=== PATIENT | female | born 1960 | race Two or more races ===

== ENCOUNTER 2023-12-20 13:12 | Outpatient (AMB) | payer MEDICAID, SELFPAY ==
[2023-12-20 13:13] VITALS: BP 119/73; PULSE 77; RESP 18; TEMP 36.9; O2SAT 96; BMI 11.7
--- NOTE | 2023-12-20 13:13 | ORTHONT_ITS ---
Vital signs 12/20/23 13:13 Height 1.55 m Height Method Stated Weight 28.123 kg Weight Measurement Method Standing Scale BMI 11.7 BP 119/73 Blood Pressure Source Automatic Cuff Blood Pressure Location Right Upper Arm Position Sitting Respiration 18 Pulse 77 Pulse Source Monitor Temp 98.5 F Temp Source Temporal Artery Scan Pulse Oximetry (%) 96 Oxygen Delivery Method Room Air Med/Allergies Allergies & Medications Allergies NKA* Allergy (Uncoded 12/20/23 13:18) Medication Reconciliation ibuprofen 600 mg tablet 600 mg PO Q6HR PRN PAIN #28 tabs 12/30/15 [Rx Confirmed 12/20/23] Subjective Visit Visit for: follow up visit Immunization / Flu Flu Vaccine in the Last 12 Months: No Flu Vaccine Exclusion Criteria: No Exclusion Criteria History of Present Illness Chief complaint: PRE OP Patient is a 63-year-old female who is seen 2 prior orthopedic surgeons previously with significant left knee pain. She was told she needed knee replacement. Both surgeons have left before. She has tried injections x 2 as well as anti-inflammatories. She also has tried ibuprofen. She reports the pain is affecting her quality of life and happiness. Personal History Red flag PMH: none Pain Pain level (0-10): 9 Pain duration: CONSTANT Pain location: inside (medial), outside (lateral), anterior and posterior Pain quality: sharp and aching Pain timing: night, increases with activity and stairs Associated signs & symptoms: none Ambulatory data Ambulatory device: none Treatments Improvement with previous injections: No Improvement with PT: No Improvement with NSAIDS: no Review of Systems Review of Systems: All systems negative unless otherwise noted in HPI. Exam Exam Patient is in no acute distress and is cooperative with the examination today. Breathing is nonlabored. Patient has a normal mood and affect. Bilateral e xtremities were evaluated and demonstrates sensation intact to light touch. Palpable pedal pulses are present. No significant edema is present. Bilateral hips were examined. The patient has no pain with log roll of the hips. Internal rotation to 30 degrees and external rotation to 30 degrees is painless. Negative FADIR. Right knee was examined today. The right knee is in reasonable alignment. Range of motion from 0-120 degrees. Knee is stable to varus and valgus as well as AP translation with <5mm. Patient has a negative McMurrays. There is no pain with patellofemoral compression and no crepitus noted. The knee is nontender to palpation. Left knee was examined today. The left knee is in varus alignment. Range of motion from 0-115 degrees. Knee is stable to varus and valgus as well as AP translation with <5mm. Patient has a negative McMurrays. There is no pain with patellofemoral compression and no crepitus noted. The knee is tender to palpation medially. Left knee demonstrates Complete joint space obliteration medially. Osteophytes are present. There is varus deformity Assessment and Plan Problem List (1) Arthritis of left knee: Status: Acute Plan: Patient is 63-year-old female severe left knee arthritis. She has failed conservative treatment with anti-inflammatories and injections and has end-stage arthritis. The pain is affecting her quality of life and happiness. She has a family history of arthritis with her sister previously had a hip PJI in her knee after a knee replacement. We discussed that infection can happen her risk is approximately 1% as she is relatively healthy Given her failure conservative management, we discussed total knee replacement is a reasonable option The nature and purpose of the total knee replacement, alternative method(s) of treatment, the material risks involved, and the possibility of complications were fully explained to the patient. The patient does NOT have any of the following contraindications to TKA: - Active infection of the knee joint, OR - Active systemic bacteremia, OR - Active skin infection or open wound at surgical site, OR - Neuropathic arthritis, OR - Severe, rapidly progressive neurological disease, OR - Severe medical condition that makes risks of surgery outweigh the potential benefit The patient was told the most common risks and complications associated with a total knee replacement include, but are not limited to: blood clots in the leg, fatal pulmonary embolism, dislocation of the prosthesis, intraoperative and postoperative fractures of the femur or tibia, infection, failure of the prosthesis or grafting materials, complications from anesthesia, reactions to blood transfusions, postoperative leg length inequality, instability of the knee replacement, nerve damage or injury, vascular injury, delayed wound healing, infection, other injury or even . In addition, there are risks associated with anesthesia given during this operation. Also, the patient was told that after undergoing a total knee replacement there may still be persistent pain or disability. The patient was informed that the success of this operation in part depends upon the mechanical devices which are going to be implanted and that these devices can fail or malfunction, and may need to be repaired or replaced and there are no guarantees as to the longevity of this device or its parts and that it or its parts could fail prematurely. The patient was also notified that during the course of surgery, there may be a need to use bone graft from donors, and that any bone graft used will be carefully screened for communicable diseases, including AIDS, hepatitis, You-Creutzfeldt, or other diseases, but despite the screening procedures, there is a small chance that they could contract one of these diseases. Finally, the patient was asked to follow completely and fully with all advice and recommended treatments, and that recovery and ultimate outcome are affected by their compliance with recommended treatment. We discussed the risks, benefits and treatment alternatives, and the patient is interested in proceeding with surgery. We will try to set this up as expeditiously as possible. (2) Pain in left knee: Status: Acute Office Procedures GNS Level of Care Nursing/Assessment Patient Status: Established Patient Nursing Assessment/Reassesment: Medication Reconciliation, Update PMH in EMR and Vital Signs Coordination of Care: Complex Care and Chronic Disease 1-5, Education Complex Pt/Fam, Consent,records obtained, informed consent and Staff clarify orders Established Patient Charge Established Patient Point Assignment: 90 Established Patient Point Charge: EP Level 3 (80-115) Past Medical History Past Medical History Have you ever been diagnosed with any of the following: Respiratory Problems Smoking: No Smoking Exposure: No
== END 2023-12-20 13:39 | disposition home or self-care (01) ==
LOC: HODSRG 13:12
PROVIDERS: PCP Family Medicine; Referring Provider Family Medicine; Supervising Provider Orthopaedic Surgery Adult Reconstructive Orthopaedic Surgery; Visit Provider Orthopaedic Surgery Adult Reconstructive Orthopaedic Surgery
DX: M17.12 Unilateral primary osteoarthritis, left knee (principal); M25.562 Pain in left knee
CPT/HCPCS: 99213; G0463

== ENCOUNTER 2024-01-10 13:51 | Outpatient (AMB) | payer MEDICAID, SELFPAY ==
--- NOTE | 2024-01-10 14:38 | PD.ORTHCLVIS ---
Vital signs 01/10/24 14:41 Height 1.63 m Height Method Stated Weight 71.838 kg Weight Measurement Method Standing Scale BMI 27.0 BP 102/66 Blood Pressure Source Automatic Cuff Blood Pressure Location Left Upper Arm Position Sitting Respiration 18 Pulse 80 Pulse Source Monitor Temp 97.7 F Temp Source Temporal Artery Scan Pulse Oximetry (%) 95 Oxygen Delivery Method Room Air Med/Allergies Allergies & Medications Allergies No Known Allergies Allergy (Verified 01/10/24 14:42) Medication Reconciliation acetaminophen 500 mg tablet (Acetaminophen Extra Strength) 1,000 mg (2 x 500 mg) PO Q6H PRN pain #90 tabs 12/25/23 [Rx Confirmed 01/10/24] aspirin 81 mg tablet,delayed release 81 mg PO BID #60 tabs 12/25/23 [Rx Confirmed 01/10/24] doxycycline hyclate 100 mg tablet 100 mg PO BID #14 tabs 12/25/23 [Rx Confirmed 01/10/24] gabapentin 300 mg capsule 300 mg PO .qhs #30 caps 12/25/23 [Rx Confirmed 01/10/24] oxycodone 5 mg tablet 5 mg PO Q6H PRN pain #28 tabs 12/25/23 [Rx Confirmed 01/10/24] sennosides 8.6 mg-docusate sodium 50 mg tablet (Senna-S) 1 tab-cap PO QDAY #30 tabs 12/25/23 [Rx Confirmed 01/10/24] Subjective Visit Visit for: follow up visit and knee Immunization / Flu Flu Vaccine in the Last 12 Months: Yes Flu Vaccine Exclusion Criteria: Already Received History of Present Illness Chief complaint: 2WK POST OP TKA Patient is doing well status post left total knee replacement. She is doing well with outpatient physical therapy Personal History Occupation: DISABLED Pain Pain level (0-10): 0 Pain duration: NONE Associated signs & symptoms: none Ambulatory data Ambulatory device: none Treatments Improvement with previous injections: No Improvement with PT: No Improvement with NSAIDS: n/a Review of Systems Review of Systems: All systems negative unless otherwise noted in HPI. Exam Exam Patient is in no acute distress and is cooperative with the examination today. Patient has a normal mood and affect. Breathing is nonlabored. In no respiratory distress. Bilateral extremities were evaluated and demonstrates sensation intact to light touch. Palpable pedal pulses are present. No significant edema is present. Left knee incision is clean dry and intact Left knee x-rays demonstrate a total knee replacement in good alignment position Assessment and Plan Problem List (1) History of total left knee replacement: Status: Acute Plan: Patient is doing well status post left total knee replacement. She should continue with therapy. Will see her in approximately 4 weeks. Office Procedures GNS Level of Care Nursing/Assessment Patient Status: Established Patient Nursing Assessment/Reassesment: Medication Reconciliation, Update PMH in EMR and Vital Signs Coordination of Care: Complex Care and Chronic Disease 1-5, Education Complex Pt/Fam, Consent,records obtained, informed consent, Results/Orders obtained and Staff clarify orders Special Needs: Language special needs Established Patient Charge Established Patient Point Assignment: 95 Established Patient Point Charge: EP Level 3 (80-115) Past Medical History Past Medical History Have you ever been diagnosed with any of the following: Neurological Problems Seizures: No Migraine: Yes Cardiology Problems Congestive Heart Failure: No Respiratory Problems Chronic Obstructive Pulmonary Disease (COPD): No Smoking: No Smoking Exposure: No Stomache/Intestinal Problems Hepatitis: No Genital/Urinary Problems Renal Disease: No Reproductive Problems Previous Pregnancies: Yes Musculoskeletal Problems Arthritis: Yes Endocrine Problems Diabetes Mellitus Type 1: No Diabetes Mellitus Type 2: No Other Problems Hospitalization: No Shingles: No Blood Transfusions: No Blood Transfusion Reaction: No Anesthesia Reactions: No Chicken Pox: Yes Measles: Yes Cancer: No
[2024-01-10 14:41] VITALS: BP 102/66; PULSE 80; RESP 18; TEMP 36.5; O2SAT 95; BMI 27.0
== END 2024-01-10 14:49 | disposition home or self-care (01) ==
LOC: HODSRG 13:51
PROVIDERS: PCP Family Medicine; Referring Provider Family Medicine; Supervising Provider Orthopaedic Surgery Adult Reconstructive Orthopaedic Surgery; Visit Provider Orthopaedic Surgery Adult Reconstructive Orthopaedic Surgery
DX: Z96.652 Presence of left artificial knee joint (principal)
CPT/HCPCS: 99213; G0463

== ENCOUNTER 2024-01-16 13:30 | Outpatient (RCR) | payer MEDICAID, SELFPAY ==
--- NOTE | 2024-01-09 13:39 | PTNOTE_ITS ---
PT OP Initial Eval Patient Information Outpatient Physical Therapy Treatment Date: 01/09/24 Visit Reasons: Post Op left knee surgery Medical Diagnosis: M17.12 M25.562 Treatment Dx #1: L knee pain Treatment Dx #2: Dec L knee ROM Start of Care: 01/09/24 Date of Onset: 12/25/23 Smoking Status Smoking Status: Never smoker Initial Assessment Subjective: Pt is 63 yr old german speaking female s/p L TKA presents ambulating with FWW and step to gait pattern. Pt reports pain with bending the knee and walking. She was ambulating without the FWW prior to sx. PMH: none reported Pt goal: to ambulate without the walker and without pain Objective: L knee AROM: ? Flexion: 43 deg ? Extension: -13 deg ? SLR: ? unable ? Strength: ? Quads and hamstrings 3-/5 ? Antalgic gait pattern with decreased WB tolerance on R LE Assessment: Pt presentation consistent with post op L TKA with decreased ROM, strength ? and WB tolerance. Pt lacks knee extension and flexion ROM is very limited by ? myofascial limitations and pain.? Pt requires skilled therapy to improve ROM ? and strength and has good rehab potential.? Eval followed by HEP with printout. Short Term and Prison Goals 1. Independent with HEP ? 2. Improved knee extension to full and flexion ROM to 115 deg ? 3. Improved quad and hamstring strength to 4+/5 ? 4. Improved ambulatory tolerance to community distances with symmetrical ? gait pattern without walker if safe Treatment Plan 1. Manual therapy ? 2. Therex ? 3. Modalities as indicated, moist heat, ice, TENS Frequency and Duration: 2x a week for 18 visits Certification Dates: 01/09/24 to 04/08/24 Procedure Charges OP PT Eval Mod Complex 30 minutes: Yes
--- NOTE | 2024-01-13 14:17 | PT.ODAYNRPT ---
PT Outpatient Daily Note OP Daily Note Outpatient Physical Therapy Treatment Date: 01/13/24 Visit Reasons: Post Op left knee surgery Subjective: Doing HEP with pain in L knee Objective: See f/S for therex MHP x7' with LLPS Assessment: Good improvement with knee PROM into extension after LLPS to about -3 deg Plan: Improve L knee ROM Length of Time (minutes) of Treatment: 30 Minutes Procedure Charges Therapeutic Exercise 30 minutes: Yes
--- NOTE | 2024-01-16 14:37 | PT.ODAYNRPT ---
PT Outpatient Daily Note OP Daily Note Outpatient Physical Therapy Treatment Date: 01/16/24 Visit Reasons: Post Op left knee surgery Subjective: Pt reports L knee is stiff and pain is worst at night. Objective: Please see flow sheet for ther ex list. Assessment: Pt guarded during PROM resulting in poor ROM. Plan: Continue with POC. Length of Time (minutes) of Treatment: 30 Minutes Procedure Charges Therapeutic Exercise 30 minutes: Yes
== END 2024-01-25 23:59 | disposition home or self-care (01) ==
LOC: CPTX 13:30
PROVIDERS: PCP Orthopaedic Surgery Adult Reconstructive Orthopaedic Surgery; Referring Provider Orthopaedic Surgery Adult Reconstructive Orthopaedic Surgery; Visit Provider Orthopaedic Surgery Adult Reconstructive Orthopaedic Surgery
DX: M25.562 Pain in left knee (principal); Z96.652 Presence of left artificial knee joint; M17.12 Unilateral primary osteoarthritis, left knee
CPT/HCPCS: 97110; 97162

== ENCOUNTER 2024-02-07 10:15 | Outpatient (AMB) | payer MEDICAID, SELFPAY ==
--- NOTE | 2024-02-07 10:46 | ORTHONT_ITS ---
Vital signs 02/07/24 10:52 Height 1.63 m Height Method Stated Weight 71.242 kg Weight Measurement Method Standing Scale BMI 26.8 BP 113/74 Blood Pressure Source Automatic Cuff Blood Pressure Location Right Upper Arm Position Sitting Respiration 18 Pulse 91 Pulse Source Monitor Temp 97.8 F Temp Source Temporal Artery Scan Pulse Oximetry (%) 97 Oxygen Delivery Method Room Air Med/Allergies Allergies & Medications Allergies No Known Allergies Allergy (Verified 02/07/24 10:53) Medication Reconciliation acetaminophen 500 mg tablet (Acetaminophen Extra Strength) 1,000 mg (2 x 500 mg) PO Q6H PRN pain #90 tabs 12/25/23 [Rx Confirmed 02/07/24] aspirin 81 mg tablet,delayed release 81 mg PO BID #60 tabs 12/25/23 [Rx Confirmed 02/07/24] doxycycline hyclate 100 mg tablet 100 mg PO BID #14 tabs 12/25/23 [Rx Confirmed 02/07/24] gabapentin 300 mg capsule 300 mg PO .qhs #30 caps 12/25/23 [Rx Confirmed 02/07/24] oxycodone 5 mg tablet 5 mg PO Q6H PRN pain #28 tabs 12/25/23 [Rx Confirmed 01/25 05/18] sennosides 8.6 mg-docusate sodium 50 mg tablet (Senna-S) 1 tab-cap PO QDAY #30 tabs 12/25/23 [Rx Confirmed 02/07/24] cyclobenzaprine 5 mg tablet 5 mg PO QHS PRN muscle spasm #30 tabs 02/07/24 [Rx] Subjective Visit Visit for: post op #2 and knee Immunization / Flu Flu Vaccine in the Last 12 Months: Yes Flu Vaccine Exclusion Criteria: Already Received History of Present Illness Chief complaint: 6 WEEK POST OP Patient is doing well status post left total knee replacement. She is doing well with outpatient physical therapy But had a delayed start Personal History Occupation: DISABLED Pain Pain level (0-10): 5 Pain duration: COMES AND GOES Pain location: anterior Pain quality: sharp, dull and aching Pain timing: night Associated signs & symptoms: none Ambulatory data Ambulatory device: cane Treatments Improvement with previous injections: No Improvement with PT: No Improvement with NSAIDS: n/a Review of Systems Review of Systems: All systems negative unless otherwise noted in HPI. Exam Exam Patient is in no acute distress and is cooperative with the examination today. Patient has a normal mood and affect. Breathing is nonlabored. In no respiratory distress. Bilateral extremities were evaluated and demonstrates sensation intact to light touch. Palpable pedal pulses are present. No significant edema is present. Left knee incision is clean dry and intact Left knee x-rays demonstrate a total knee replacement in good alignment position Assessment and Plan Problem List (1) History of total left knee replacement: Status: Acute Plan: Patient is doing well status post left total knee replacement. She should continue with therapy. I would like her to work on her range of motion.We will see her in 4 weeks for motion check. I discussed with her she needs to work aggressively with therapy. We will also need new x-rays Office Procedures GNS Level of Care Nursing/Assessment Patient Status: Established Patient Nursing Assessment/Reassesment: Medication Reconciliation, Update PMH in EMR and Vital Signs Coordination of Care: Complex Care and Chronic Disease 1-5, Education Complex Pt/Fam, Consent,records obtained, informed consent, Lab and Imaging orders, Results/Orders obtained and Staff clarify orders Special Needs: Language special needs Established Patient Charge Established Patient Point Assignment: 110 Established Patient Point Charge: EP Level 3 (80-115) Past Medical History Past Medical History Have you ever been diagnosed with any of the following: Neurological Problems Seizures: No Migraine: Yes Cardiology Problems Congestive Heart Failure: No Respiratory Problems Chronic Obstructive Pulmonary Disease (COPD): No Smoking: No Smoking Exposure: No Stomache/Intestinal Problems Hepatitis: No Genital/Urinary Problems Renal Disease: No Reproductive Problems Previous Pregnancies: Yes Musculoskeletal Problems Arthritis: Yes Endocrine Problems Diabetes Mellitus Type 1: No Diabetes Mellitus Type 2: No Other Problems Hospitalization: No Shingles: No Blood Transfusions: No Blood Transfusion Reaction: No Anesthesia Reactions: No Chicken Pox: Yes Measles: Yes Cancer: No Surgical History Total Knee Replacement: Yes
[2024-02-07 10:52] VITALS: BP 113/74; PULSE 91; RESP 18; TEMP 36.6; O2SAT 97; BMI 26.8
== END 2024-02-07 11:29 | disposition home or self-care (01) ==
LOC: HODSRG 10:15
PROVIDERS: Supervising Provider Orthopaedic Surgery Adult Reconstructive Orthopaedic Surgery; Visit Provider Orthopaedic Surgery Adult Reconstructive Orthopaedic Surgery
DX: Z96.652 Presence of left artificial knee joint (principal)
CPT/HCPCS: 99213; G0463

== ENCOUNTER → 2024-02-07 | Outpatient (CLI) | payer MEDICAID, SELFPAY ==
--- NOTE | 2024-02-07 | XR_ITS ---
Examination: Left knee 4 views TECHNIQUE: AP oblique lateral axial left knee 4 views Exam date and time: February 07, 2024 1307 hours INDICATIONS: Total knee replacement December 25, 2023 FINDINGS: Moderate osteopenia Total left knee arthroplasty. Satisfactory alignment. No fracture. No loosening of the prosthetic components. No patellar dislocation IMPRESSION: Total left knee arthroplasty with satisfactory alignment
== END | disposition home or self-care (01) ==
LOC: CDIM 11:34
PROVIDERS: Referring Provider Orthopaedic Surgery Adult Reconstructive Orthopaedic Surgery; Visit Provider Orthopaedic Surgery Adult Reconstructive Orthopaedic Surgery
DX: M17.12 Unilateral primary osteoarthritis, left knee (principal); Z96.652 Presence of left artificial knee joint
CPT/HCPCS: 73564

== ENCOUNTER 2024-02-25 14:00 | Outpatient (RCR) | payer MEDICAID, SELFPAY ==
--- NOTE | 2024-01-27 14:38 | PTNOTE_ITS ---
PT Outpatient Daily Note OP Daily Note Outpatient Physical Therapy Treatment Date: 01/27/24 Visit Reasons: Post op left knee surgery Subjective: Pt reports L knee is doing better but still does not feel confident enough to leave walker. No complaints or reports of knee buckling. Objective: Please see flow sheet for ther ex list. Assessment: Pt instructed on GT with single FUEL CELL REPAIRER, pt performed with heel toe pattern first laps pt guarded but improved. Plan: Continue with POC. Length of Time (minutes) of Treatment: 30 Minutes Procedure Charges Therapeutic Exercise 30 minutes: Yes
--- NOTE | 2024-01-30 14:20 | PT.ODAYNRPT ---
PT Outpatient Daily Note OP Daily Note Outpatient Physical Therapy Treatment Date: 01/30/24 Visit Reasons: Post op left knee surgery Subjective: Pt reports L knee is doing ok, c/o pain and stiffness. As per pt she works on HEP daily. Objective: Please see flow sheet for ther ex list. Assessment: Worked on GT with SPC in parallel bars with PTOR. Pt continues to be highly guarded during attempt to PROM into flexion. Plan: Continue with POC. Length of Time (minutes) of Treatment: 30 Minutes Procedure Charges Therapeutic Exercise 30 minutes: Yes
--- NOTE | 2024-02-03 14:56 | PT.ODAYNRPT ---
PT Outpatient Daily Note OP Daily Note Outpatient Physical Therapy Treatment Date: 02/03/24 Visit Reasons: Post op left knee surgery Subjective: pt. reports concerns of knee flexion due to stiffness. Objective: See flowsheet for ther-ex AROM knee extension -4 degrees AROM knee flexion 84 degrees Assessment: PROM improved knee flexion to 90 degrees Plan: continue PT per POC Length of Time (minutes) of Treatment: 30 Minutes Procedure Charges Therapeutic Exercise 30 minutes: Yes
--- NOTE | 2024-02-05 13:56 | PT.ODAYNRPT ---
PT Outpatient Daily Note OP Daily Note Outpatient Physical Therapy Treatment Date: 02/05/24 Visit Reasons: Post op left knee surgery Subjective: pt. reports she overstretched L knee into flexion with increase pain since then Objective: see flowsheet for ther-ex L knee extension: -11 degrees L knee flexion : 73 degrees Cold Pack with 3lbs low load prolonged stretch x7 mins Assessment: increased knee extension by 5 degrees after coldpack with 3lbs in LLPS. Held manual therapy due to pain. Plan: continue PT per POC Length of Time (minutes) of Treatment: 30 Minutes Procedure Charges Therapeutic Exercise 30 minutes: Yes
--- NOTE | 2024-02-10 14:04 | PT.ODAYNRPT ---
PT Outpatient Daily Note OP Daily Note Outpatient Physical Therapy Treatment Date: 02/10/24 Visit Reasons: Post op left knee surgery Subjective: Pt reports L knee is stiff and achy. Pt shared that she is no longer using FWW, has been getting around with quad cane. Objective: Please see flow sheet for ther ex list. Assessment: Pt instructed on squatting exercise with WOOD TYPE CUTTER to work on knee flexion, pt able to increase range after each squat. Plan: Continue with pOC. Length of Time (minutes) of Treatment: 30 Minutes Procedure Charges Therapeutic Exercise 30 minutes: Yes
--- NOTE | 2024-02-13 17:05 | PT.ODAYNRPT ---
PT Outpatient Daily Note OP Daily Note Outpatient Physical Therapy Treatment Date: 02/13/24 Visit Reasons: Post op left knee surgery Subjective: Pain with bending the knee Objective: see flowsheet for ther-ex L knee extension: -3 degrees L knee flexion : 85 degrees Assessment: Myofascial pain limits knee flexion to under 90 deg Plan: continue PT per POC Length of Time (minutes) of Treatment: 30 Minutes Procedure Charges Therapeutic Exercise 30 minutes: Yes
--- NOTE | 2024-02-25 14:39 | PT.ODAYNRPT ---
PT Outpatient Daily Note OP Daily Note Outpatient Physical Therapy Treatment Date: 02/25/24 Visit Reasons: Post op left knee surgery Subjective: Pt reports L knee is doing ok, can walk in home with no AD. Pt c/o knee just feels really stiff, bending continues to be challenging. Objective: Please see flow sheet for ther ex list. Assessment: Performed PROM to L knee to pt tolerance. Pt educated to continue with HEP. Plan: Continue with pOC. Length of Time (minutes) of Treatment: 30 Minutes Procedure Charges Therapeutic Exercise 30 minutes: Yes
== END 2024-02-25 23:59 | disposition home or self-care (01) ==
LOC: CPTX 14:00
PROVIDERS: PCP Orthopaedic Surgery Adult Reconstructive Orthopaedic Surgery; Referring Provider Orthopaedic Surgery Adult Reconstructive Orthopaedic Surgery; Visit Provider Orthopaedic Surgery Adult Reconstructive Orthopaedic Surgery
DX: M25.562 Pain in left knee (principal); M17.12 Unilateral primary osteoarthritis, left knee; Z96.652 Presence of left artificial knee joint
CPT/HCPCS: 97110

== ENCOUNTER 2024-03-06 09:57 | Outpatient (AMB) | payer MEDICAID, SELFPAY ==
[2024-03-06 10:27] VITALS: BP 112/78; PULSE 82; RESP 19; TEMP 36.6; O2SAT 97; BMI 26.7
--- NOTE | 2024-03-06 10:27 | ORTHONT_ITS ---
Vital signs 03/06/24 10:27 Height 1.63 m Height Method Stated Weight 71.016 kg Weight Measurement Method Standing Scale BMI 26.7 BP 112/78 Blood Pressure Source Automatic Cuff Blood Pressure Location Left Upper Arm Position Sitting Respiration 19 Pulse 82 Pulse Source Monitor Temp 97.8 F Temp Source Temporal Artery Scan Pulse Oximetry (%) 97 Oxygen Delivery Method Room Air Med/Allergies Allergies & Medications Allergies No Known Allergies Allergy (Verified 03/06/24 10:28) Medication Reconciliation acetaminophen 500 mg tablet (Acetaminophen Extra Strength) 1,000 mg (2 x 500 mg) PO Q6H PRN pain #90 tabs 12/25/23 [Rx Confirmed 03/06/24] aspirin 81 mg tablet,delayed release 81 mg PO BID #60 tabs 12/25/23 [Rx Confirmed 03/06/24] doxycycline hyclate 100 mg tablet 100 mg PO BID #14 tabs 12/25/23 [Rx Confirmed 03/06/24] gabapentin 300 mg capsule 300 mg PO .qhs #30 caps 12/25/23 [Rx Confirmed 03/06/24] oxycodone 5 mg tablet 5 mg PO Q6H PRN pain #28 tabs 12/25/23 [Rx Confirmed 03/06] sennosides 8.6 mg-docusate sodium 50 mg tablet (Senna-S) 1 tab-cap PO QDAY #30 tabs 12/25/23 [Rx Confirmed 03/06/24] cyclobenzaprine 5 mg tablet 5 mg PO QHS PRN muscle spasm #30 tabs 02/07/24 [Rx Confirmed 03/06/24] Exam Exam Patient is in no acute distress and is cooperative with the examination today. Patient has a normal mood and affect. Breathing is nonlabored. In no respiratory distress. Bilateral extremities were evaluated and demonstrates sensation intact to light touch. Palpable pedal pulses are present. No significant edema is present. Left knee incision is clean dry and intact. Range of motion is 0 to 85 degrees Left knee x-rays demonstrate a total knee replacement in good alignment position Left knee x-rays were reviewed by me today. From January cementless total knee replacement good alignment position. I do not see any evidence of loosening Assessment and Plan Problem List (1) History of total left knee replacement: Status: Acute Plan: Patient is a 64-year-old female with a left knee pain and arthrofibrosis. Her flexion is limited to 85 degrees. It has been 2-1/2 months in surgery. I thus discussed manipulation under anesthesia as a reasonable option. I discussed the risk including persistent stiffness, fracture. We thus discussed manipulation under anesthesia as a reasonable option. We thus discussed that she also needs to continue physical therapy aggressively after this. (2) Arthrofibrosis of knee joint: Status: Acute Office Procedures GNS Level of Care Nursing/Assessment Patient Status: Established Patient Nursing Assessment/Reassesment: Medication Reconciliation, Update PMH in EMR and Vital Signs Coordination of Care: Complex Care and Chronic Disease 1-5, Education Complex Pt/Fam, Consent,records obtained, informed consent, Results/Orders obtained and Staff clarify orders Special Needs: Language special needs Established Patient Charge Established Patient Point Assignment: 95 Established Patient Point Charge: EP Level 3 (80-115) [place] Intake Visit Data Collection New Patient or Established: Established Patient (seen at [facility] within 3 years) Reason for Visit:: 4 WEEK F/U Seen by Clinical Staff ONLY (RN/MA): No Customer Professional Required: Yes PCP or OBGYN visit in last 3 months: Yes Hx Now: No Do You Feel Safe at Home: Yes Authorities Contacted: N/A Questionairres Past Medical History Past Medical History Have you ever been diagnosed with any of the following: Neurological Problems Seizures: No Migraine: Yes Cardiology Problems Congestive Heart Failure: No Respiratory Problems Chronic Obstructive Pulmonary Disease (COPD): No Smoking: No Smoking Exposure: No Stomache/Intestinal Problems Hepatitis: No Genital/Urinary Problems Renal Disease: No Reproductive Problems Previous Pregnancies: Yes Musculoskeletal Problems Arthritis: Yes Endocrine Problems Diabetes Mellitus Type 1: No Diabetes Mellitus Type 2: No Other Problems Hospitalization: No Shingles: No Blood Transfusions: No Blood Transfusion Reaction: No Anesthesia Reactions: No Chicken Pox: Yes Measles: Yes Cancer: No Surgical History Total Knee Replacement: Yes Subjective Visit Visit for: follow up visit Immunization / Flu Flu Vaccine in the Last 12 Months: No Flu Vaccine Exclusion Criteria: No Exclusion Criteria History of Present Illness Chief complaint: left knee stiffness Patient is a 64-year-old female who is 2-1/2-month status post left total knee replacement. It was complicated by stiffness. She can only get a 9 degrees of flexion and she reports that she is stuck. She would like to go a manipulation. She continues to work with physical therapy Pain Pain level (0-10): 0 Associated signs & symptoms: none Ambulatory data Ambulatory device: none Treatments Improvement with previous injections: No Improvement with PT: No Improvement with NSAIDS: no Review of Systems Review of Systems: All systems negative unless otherwise noted in HPI.
== END 2024-03-06 10:44 | disposition home or self-care (01) ==
LOC: HODSRG 09:57
PROVIDERS: PCP Orthopaedic Surgery Adult Reconstructive Orthopaedic Surgery; Referring Provider Orthopaedic Surgery Adult Reconstructive Orthopaedic Surgery; Supervising Provider Orthopaedic Surgery Adult Reconstructive Orthopaedic Surgery; Visit Provider Orthopaedic Surgery Adult Reconstructive Orthopaedic Surgery
DX: Z96.652 Presence of left artificial knee joint (principal); M25.562 Pain in left knee; M24.662 Ankylosis, left knee
CPT/HCPCS: 99213; G0463

== ENCOUNTER 2024-03-26 15:30 | Outpatient (RCR) | payer MEDICAID, SELFPAY ==
--- NOTE | 2024-02-27 14:03 | PT.ODAYNRPT ---
PT Outpatient Daily Note OP Daily Note Outpatient Physical Therapy Treatment Date: 02/27/24 Visit Reasons: Post op left knee surgery Subjective: Pt reports L knee continues to feel stiff and like it is stuck. Objective: Please see flow sheet for ther ex list. Assessment: Performed PROM to L knee into flexion, pt guarded and pain limiting range. Plan: Progress per protocol. Length of Time (minutes) of Treatment: 30 Minutes Procedure Charges Therapeutic Exercise 30 minutes: Yes
--- NOTE | 2024-03-02 13:25 | PT.ODAYNRPT ---
PT Outpatient Daily Note OP Daily Note Outpatient Physical Therapy Treatment Date: 03/02/24 Visit Reasons: Post op left knee surgery Subjective: Knee stiffness that limits bending Objective: See FS for therex Assessment: Knee flexion PROM limited to about 90-95 deg by myofascial tightness Plan: Improve flexion ROM Length of Time (minutes) of Treatment: 30 Minutes Procedure Charges Therapeutic Exercise 30 minutes: Yes
--- NOTE | 2024-03-05 17:58 | PT.ODS1RPT ---
PT OP Progress/Discharge Note Date of Service: 03/05/24 Progress Note/DC Note Progress Note/Discharge Note: Progress Note Patient Information Visit Reasons: Post op left knee surgery Service Continue Service or Discharge: Continue Service Status Subjective: Pain with bending the knee. She is ambulating without assistive device. Objective: L knee AROM: Extension: full Flexion: 85 deg SLR: full Strength: Quads: 4-/5 HS: 4/5 Gait: unsymmetrical with flexed knee. Assessment: Pt has attended 12/12 sessions with good progress to have full knee extension but flexion is limited to about 90 deg PROM. Pain and adhesions limit ROM. Pt would benefit from additional therapy to improve flexion ROM and gait pattern. Plan: Request additional authorized visits x8 and extend certification dates to 06/06/24. Procedure Charges Therapeutic Exercise 30 minutes: Yes
--- NOTE | 2024-03-16 15:56 | PT.ODAYNRPT ---
PT Outpatient Daily Note OP Daily Note Outpatient Physical Therapy Treatment Date: 03/16/24 Visit Reasons: Post op left knee surgery Subjective: Pt reports L continues to be stiff. Pt mentioned that she is compliant with HEP and right after she performs her exercises knee feels more flexible but the next day its back to being stiff again. Pt mentioned her surgeon recommended manipulation but pt declined. Surgeon gave pt one week to think abour it. Objective: Please see flow sheet for ther ex list. Assessment: Pt highly guarded during PROM, progress with ROM into flexion slow. Plan: Continue with POC. Length of Time (minutes) of Treatment: 30 Minutes Procedure Charges Therapeutic Exercise 30 minutes: Yes
--- NOTE | 2024-03-19 15:37 | PT.ODAYNRPT ---
PT Outpatient Daily Note OP Daily Note Outpatient Physical Therapy Treatment Date: 03/19/24 Visit Reasons: Post op left knee surgery Subjective: Pt reports L knee is doing ok, decided she will not have the manipulation done. Objective: Please see flow sheet for ther ex list. Assessment: Pt guarded resulting in poor ROM progress. Plan: Continue with pOC. Length of Time (minutes) of Treatment: 30 Minutes Procedure Charges Therapeutic Exercise 30 minutes: Yes
--- NOTE | 2024-03-23 16:14 | PT.ODAYNRPT ---
PT Outpatient Daily Note OP Daily Note Outpatient Physical Therapy Treatment Date: 03/23/24 Visit Reasons: Post op left knee surgery Subjective: Pain with bending the knee. She is ambulating without assistive device. Objective: See F/S for therex MT: PPM into flexion x7' with overpressure Assessment: Pts flexion is limited to about 90 deg PROM. Pain and adhesions limit ROM. Pt would benefit from additional therapy to improve flexion ROM and gait pattern. She would benefit from STERLING but she is hesitant. Plan: Continue per POC Length of Time (minutes) of Treatment: 30 Minutes Procedure Charges Therapeutic Exercise 30 minutes: Yes
--- NOTE | 2024-03-26 19:15 | PT.ODAYNRPT ---
PT Outpatient Daily Note OP Daily Note Outpatient Physical Therapy Treatment Date: 03/26/24 Visit Reasons: Post op left knee surgery Subjective: Pain with bending the knee. She is ambulating without assistive device. Objective: See F/S for therex MT: PPM into flexion x7' with overpressure Assessment: Pts flexion is limited to about 90 deg PROM. Pain and adhesions limit ROM. Pt would benefit from additional therapy to improve flexion ROM and gait pattern. She would benefit from STERLING but she is hesitant. Plan: Continue per POC Length of Time (minutes) of Treatment: 30 Minutes Procedure Charges Therapeutic Exercise 30 minutes: Yes
== END 2024-03-27 23:59 | disposition home or self-care (01) ==
LOC: CPTX 15:30
PROVIDERS: PCP Orthopaedic Surgery Adult Reconstructive Orthopaedic Surgery; Referring Provider Orthopaedic Surgery Adult Reconstructive Orthopaedic Surgery; Visit Provider Orthopaedic Surgery Adult Reconstructive Orthopaedic Surgery
DX: M25.562 Pain in left knee (principal); M17.12 Unilateral primary osteoarthritis, left knee; Z96.652 Presence of left artificial knee joint
CPT/HCPCS: 97110

== ENCOUNTER 2024-03-30 13:00 | Day surgery (SDC) | payer MEDICAID, SELFPAY ==
[2024-03-27 13:05] VITALS: BMI 27.3
[2024-03-27 13:07] LABS: Basophils # (Auto) 0.1 Thou/mm3 (0.0-0.2); Basophils % (Auto) 1 % (0-2.5); Eosinophils # (Auto) 0.1 Thou/mm3 (0.0-0.5); Eosinophils % (Auto) 2 % (0-10); Hematocrit 39.6 % (36.0-46.0); Immature Granulocytes % (Auto) 1 % (0-0); Immature Granulocytes Auto 0.04 Thou/mm3 (0.00-0.00); Lymphocytes # (Auto) 2.8 Thou/mm3 (1.0-4.8); Lymphocytes % (Auto) 38 % (10-50); Mean Corpuscular HGB Conc 32.8 g/dl (31.0-37.0); Mean Corpuscular Hemoglobin 27.4 pg (25.0-35.0); Mean Corpuscular Volume 83 fL (80-100); Monocytes # (Auto) 0.8 Thou/mm3 (0.0-0.8); Monocytes % (Auto) 11 % (0-12); Neutrophils # (Auto) 3.5 Thou/mm3 (1.8-7.7); Neutrophils % (Auto) 48 % (37-80); Nucleated Red Blood Cell % 0 /100 WBC (0); Platelet Count 345 Thou/mm3 (140-440); RDW Standard Deviation 42.5 fL (36.4-46.3); Red Blood Count 4.75 Miln/mm3 (4.00-5.20); White Blood Count 7.4 Thou/mm3 (3.6-11.0)
[2024-03-27 13:20] LABS: Partial Thromboplastin Time 25.7 Seconds (22.0-36.0); Prothrombin Time 11.1 Seconds (9.0-12.2)
[2024-03-27 13:30] LABS: Alanine Aminotransferase 17 U/L (10-49); Albumin, Serum 4.9 gm/dL (3.4-4.8); Albumin/Globulin Ratio 1.6 (1.2-2.2); Alkaline Phosphatase 168 U/L (46-116); Anion Gap 9 (7-16); Aspartate Amino Transferase 23 U/L (0-34); BUN/Creatinine Ratio 22 Ratio (12-20); Bilirubin,Total 0.7 mg/dL (0.3-1.2); Blood Urea Nitrogen 13 mg/dL (9-23); Calcium 9.9 mg/dL (8.3-10.6); Calcium (Corrected) 9.9 mg/dL (8.5-10.1); Carbon Dioxide 26.9 mMol/L (20.0-31.0); Chloride 105 mMol/L (98-107); Creatinine (Component) 0.6 mg/dL (0.6-1.3); Estimated Creatinine Clearance 84.4 mL/min (>60); Glucose 116 mg/dL (74-106); Osmolality,Calculated 282 (275-295); Potassium 3.6 mMol/L (3.4-5.1); Sodium 141 mMol/L (136-145); Total Protein 7.9 gm/dL (5.7-8.2); eGFR > 60 See Note
[2024-03-30] VITALS (8 sets, daily range): BP systolic 123–138; BP diastolic 73–87; PULSE 72–88; RESP 12–18; TEMP 36.2–36.4; O2SAT 95–100; BMI 28.7
--- NOTE | 2024-03-30 13:00 | SUR.PREOP ---
Pt. informed us that she had ate 4 saltine crackers and half a bottle of water. Dr. Fletcher and Jose SHELF FILLER made aware. Jose stated he would not proceed with surgery and that he would let Dr. Arzola and Dr. Fletcher know.
--- NOTE | 2024-03-30 13:05 | SUR.PREOP ---
Dr. Fletcher stated that Dr. Arzola stated it was ok to proceed with procedure.
--- NOTE | 2024-03-30 13:08 | SUR.PREOP ---
Pt. stated that she had added shrimp, cucumber, tomato and hot sauce to the [address] crack[address] Arzola made aware of this. States ok to proceed.
--- NOTE | 2024-03-30 13:08 | SUR.PREOP ---
Pt educated regarding the risk of aspiration. Pt acknowledged the risk.
[2024-03-30] MEDS: ACETAMINOPHEN 325 MG TABLET 650 MG PO (13:43)
[2024-03-30] MEDS: MELOXICAM 7.5 MG TABLET PO (13:44)
[2024-03-30] MEDS: PREGABALIN 75 MG CAPSULE PO (13:44)
[2024-03-30] MEDS: RINGERS LACTATED 1000 ML 1,000 ML 20 ML IV (13:45)
--- NOTE | 2024-03-30 15:47 | PD.SUROPNT ---
Date of Procedure 03/30/24 Pre Op Diagnosis left knee arthrofibrosis Post Op Diagnosis left knee arthrofibrosis Procedure Left knee manipulation under anesthesia Findings Preoperative range of motion 0 to 45 degrees Postoperative range of motion 0 to 105 degrees Procedure Description Patient is a 64-year-old female with arthrofibrosis. She had delayed start physical therapy and her son reports that she did nothing at home for the first 4 weeks. We actually had her scheduled to 2 weeks ago for a close manipulation under anesthesia but she canceled it last minute. She called us last week saying that she wanted to undergo the procedure this week. We discussed with her that his protein needs exactly the 3-month amol. We discussed the risk of the procedure includes fracture and extensor mechanism rupture. We discussed the importance of doing physical therapy with the patient The patient was sedated. The right left arm was used and gentle force was applied in flexion. There were some crackles we were able to achieve 105 degrees of flexion range of motion. We did obtain a video of this to show the patient. We did show her this in PACU. We obtained an x-ray in PACU and there is no fracture. Pathology / specimen None Pathology comment: none Estimated Blood Loss 0 Condition Stable Disposition same day Surgeon Ramon Fletcher MD Surgical Staff Operation Date: 03/30/24 16:00 <No data on this case meets the specified criteria>
--- NOTE | 2024-03-30 15:48 | XR_ITS ---
Examination: Left knee 2 views Technique one AP lateral left knee 2 views Exam date and time: March 30, 2024 1555 hours INDICATIONS: Postop knee replacement today. FINDINGS: Total left knee arthroplasty. Satisfactory alignment Moderate osteopenia Moderate knee effusion No fracture IMPRESSION: Total left knee arthroplasty with satisfactory alignment
--- NOTE | 2024-03-30 15:48 | SUR.PHASEII ---
pt received from OR in recovery bay 6. pt awake and alert, breathing unlabored on oxymask 4l. v/s stable. report received from Dr. Arzola and Bk PERKINS.
--- NOTE | 2024-03-30 16:50 | SUR.PHASEII ---
pt able to tolerate oral fluids without difficulty swallowing or nausea/vomiting.
--- NOTE | 2024-03-30 17:05 | SUR.PHASEII ---
pt awake and alert, breathing unlabored on room air. v/s stable. pt cleared by physical therapist Jessica. pt able to ambulate using walker with steady gait. d/c instructions given with kina Segura in room using smoke chaser Eva Schwartz, all questions answered. pt d/c via wheelchair with all belongings.
== END 2024-03-30 17:05 | disposition home health service (06) ==
PROVIDERS: Anesthesiology; Referring Provider Orthopaedic Surgery Adult Reconstructive Orthopaedic Surgery; Visit Provider Orthopaedic Surgery Adult Reconstructive Orthopaedic Surgery
PROC: (CPT 27510; principal; 2024-03-30 16:00)
DX: M24.662 Ankylosis, left knee (principal)
CPT/HCPCS: 27510; 36415; 73560; 80053; 85025; 85610; 85730; 97162; A4217; J2704; J2765; J3010; J7120; A9270

== ENCOUNTER 2024-04-09 15:16 | Outpatient (AMB) | payer MEDICAID, SELFPAY ==
--- NOTE | 2024-04-09 15:28 | ORTHONT_ITS ---
Vital signs 04/09/24 15:29 Height 1.55 m Height Method Stated Weight 69.853 kg Weight Measurement Method Standing Scale BMI 29.0 BP 117/77 Blood Pressure Source Automatic Cuff Blood Pressure Location Left Upper Arm Position Sitting Respiration 19 Pulse 92 Pulse Source Monitor Temp 97.4 F Temp Source Temporal Artery Scan Pulse Oximetry (%) 97 Oxygen Delivery Method Room Air Med/Allergies Allergies & Medications Allergies No Known Allergies Allergy (Verified 04/09/24 15:30) Medication Reconciliation No Known Home Medications 03/27/24 [History Confirmed 04/09/24] acetaminophen 500 mg tablet (Acetaminophen Extra Strength) 1,000 mg (2 x 500 mg) PO Q6H PRN pain #90 tabs 03/30/24 [Rx Confirmed 04/09/24] oxycodone 5 mg tablet 5 mg PO Q6H PRN pain #14 tabs 03/30/24 [Rx Confirmed 04/09] Exam Exam Patient is in no acute distress and is cooperative with the examination today. Patient has a normal mood and affect. Breathing is nonlabored. In no respiratory distress. Bilateral extremities were evaluated and demonstrates sensation intact to light touch. Palpable pedal pulses are present. No significant edema is present. Left knee incision is clean dry and intact. Range of motion is 0 to 90 degrees Left knee x-rays demonstrate a total knee replacement in good alignment position Assessment and Plan Problem List (1) History of total left knee replacement: Status: Acute Plan: Patient is a 64-year-old female with a left knee pain and arthrofibrosis. We discussed that we want her to work aggressively with physical therapy to improve her range of motion. She reports that her range of motion is better than before. She should continue therapy. (2) Arthrofibrosis of knee joint: Status: Acute Office Procedures GNS Level of Care Nursing/Assessment Patient Status: Established Patient Nursing Assessment/Reassesment: Medication Reconciliation, Update PMH in EMR and Vital Signs Coordination of Care: Complex Care and Chronic Disease 1-5, Education Complex Pt/Fam, Consent,records obtained, informed consent, Results/Orders obtained and Staff clarify orders Special Needs: Language special needs Established Patient Charge Established Patient Point Assignment: 95 Established Patient Point Charge: EP Level 3 (80-115) [place] Intake Visit Data Collection New Patient or Established: Established Patient (seen at [facility] within 3 years) Reason for Visit:: FOLLOW UP Seen by Clinical Staff ONLY (RN/MA): No Mandarin Tutor Required: Yes PCP or OBGYN visit in last 3 months: Yes Hx Now: No Do You Feel Safe at Home: Yes Authorities Contacted: N/A Questionairres Past Medical History Past Medical History Have you ever been diagnosed with any of the following: Neurological Problems Seizures: No Migraine: Yes Cardiology Problems Congestive Heart Failure: No Respiratory Problems Chronic Obstructive Pulmonary Disease (COPD): No Smoking: No Smoking Exposure: No Stomache/Intestinal Problems Hepatitis: No Genital/Urinary Problems Renal Disease: No Reproductive Problems Previous Pregnancies: Yes Musculoskeletal Problems Arthritis: Yes Endocrine Problems Diabetes Mellitus Type 1: No Diabetes Mellitus Type 2: No Other Problems Hospitalization: No Shingles: No Blood Transfusions: No Blood Transfusion Reaction: No Anesthesia Reactions: No Chicken Pox: Yes Measles: Yes Cancer: No Surgical History Total Knee Replacement: Yes Subjective Visit Visit for: follow up visit and knee Immunization / Flu Flu Vaccine in the Last 12 Months: No Flu Vaccine Exclusion Criteria: No Exclusion Criteria History of Present Illness Chief complaint: left knee stiffness Patient is a 64-year-old female with arthrofibrosis Who underwent manipulation under anesthesia 2 weeks ago. She reports that her range of motion significantly improved from before.. She is working with physical therapy Pain Pain level (0-10): 0 Pain duration: ALL DAY Pain location: inside (medial) and outside (lateral) Pain quality: sharp Pain timing: increases with activity Associated signs & symptoms: stiffness and none Ambulatory data Ambulatory device: none Treatments Improvement with previous injections: No Improvement with PT: No Improvement with NSAIDS: no Review of Systems Review of Systems: All systems negative unless otherwise noted in HPI.
[2024-04-09 15:29] VITALS: BP 117/77; PULSE 92; RESP 19; TEMP 36.3; O2SAT 97; BMI 29.0
== END 2024-04-09 15:32 | disposition home or self-care (01) ==
LOC: HODSRG 15:16
PROVIDERS: Supervising Provider Orthopaedic Surgery Adult Reconstructive Orthopaedic Surgery; Visit Provider Orthopaedic Surgery Adult Reconstructive Orthopaedic Surgery
DX: Z96.652 Presence of left artificial knee joint (principal); M24.669 Ankylosis, unspecified knee
CPT/HCPCS: 99213; G0463

== ENCOUNTER 2024-04-23 15:00 | Outpatient (RCR) | payer MEDICAID, SELFPAY ==
--- NOTE | 2024-04-02 17:25 | PT.ODAYNRPT ---
PT Outpatient Daily Note OP Daily Note Outpatient Physical Therapy Treatment Date: 04/02/24 Visit Reasons: Post op left knee surgery Subjective: Pt had STERLING on Saturday. Reports pain with bending the knee. She is ambulating without assistive device. Objective: See F/S for therex MT: PPM into flexion x7' with overpressure Assessment: Pts flexion is limited to about 95 deg PROM. Pain and adhesions limit ROM and overpressure Plan: Continue per POC Length of Time (minutes) of Treatment: 30 Minutes Procedure Charges Therapeutic Exercise 30 minutes: Yes
--- NOTE | 2024-04-06 16:17 | PT.ODAYNRPT ---
PT Outpatient Daily Note OP Daily Note Outpatient Physical Therapy Treatment Date: 04/06/24 Visit Reasons: Post op left knee surgery Subjective: Pt had STERLING last Saturday. Reports pain with bending the knee. She is ambulating without assistive device. Objective: See F/S for therex MT: PPM into flexion x7' with overpressure Assessment: Pts flexion is limited to about 95 deg PROM. Pain and adhesions limit ROM and overpressure Plan: Continue per POC Length of Time (minutes) of Treatment: 30 Minutes Procedure Charges Therapeutic Exercise 30 minutes: Yes
--- NOTE | 2024-04-09 15:12 | PT.ODAYNRPT ---
PT Outpatient Daily Note OP Daily Note Outpatient Physical Therapy Treatment Date: 04/09/24 Visit Reasons: Post op left knee surgery Subjective: Pt reports L knee continues to be stiff, is frustrated with slow progress. Pt has follow up with surgeon today. Objective: Please see flow sheet for ther ex list. Assessment: High focus on restoring ROM, range limited to pt tolerance during active and static stretches. Plan: Continue with pOC. Length of Time (minutes) of Treatment: 30 Minutes Procedure Charges Therapeutic Exercise 30 minutes: Yes
--- NOTE | 2024-04-15 14:44 | PT.ODAYNRPT ---
PT Outpatient Daily Note OP Daily Note Outpatient Physical Therapy Treatment Date: 04/15/24 Visit Reasons: Post op left knee surgery Subjective: Pt had STERLING on 03/30/24. Reports pain with bending the knee. She is ambulating without assistive device. Objective: See F/S for therex MT: PPM into flexion x5' with overpressure Assessment: Pts flexion is limited to about 95 deg PROM. Pain and adhesions limit ROM and overpressure Plan: Continue per POC Length of Time (minutes) of Treatment: 30 Minutes Procedure Charges Therapeutic Exercise 30 minutes: Yes
--- NOTE | 2024-04-21 15:38 | PT.ODAYNRPT ---
PT Outpatient Daily Note OP Daily Note Outpatient Physical Therapy Treatment Date: 04/21/24 Visit Reasons: Post op left knee surgery Subjective: Pt reports knee continues to feel stiff and no matter how much she tries to stretch at home it feels like it wont move. Objective: Please see flow sheet for ther ex list. Assessment: Performed PROM to R knee within pt tolerance. Continued high focus on improving ROM. Plan: Continue with pOC. Length of Time (minutes) of Treatment: 30 Minutes Procedure Charges Therapeutic Exercise 30 minutes: Yes
--- NOTE | 2024-04-23 15:45 | PT.ODAYNRPT ---
PT Outpatient Daily Note OP Daily Note Outpatient Physical Therapy Treatment Date: 04/23/24 Visit Reasons: Post op left knee surgery Subjective: Pt had STERLING on 03/30/24. Reports pain with bending the knee and stiffness the next day. She is ambulating without assistive device. Objective: See F/S for therex MT: PPM into flexion x5' with overpressure Assessment: Pts flexion is limited to about 90 deg PROM. Pain and adhesions limit ROM and overpressure Plan: Continue per POC Length of Time (minutes) of Treatment: 30 Minutes Procedure Charges Therapeutic Exercise 30 minutes: Yes
== END 2024-04-24 23:59 | disposition home or self-care (01) ==
LOC: CPTX 15:00
PROVIDERS: PCP Orthopaedic Surgery Adult Reconstructive Orthopaedic Surgery; Referring Provider Orthopaedic Surgery Adult Reconstructive Orthopaedic Surgery; Visit Provider Orthopaedic Surgery Adult Reconstructive Orthopaedic Surgery
DX: M25.562 Pain in left knee (principal); M17.12 Unilateral primary osteoarthritis, left knee; Z96.652 Presence of left artificial knee joint
CPT/HCPCS: 97110

== ENCOUNTER 2024-05-06 15:30 | Outpatient (RCR) | payer MEDICAID, SELFPAY ==
--- NOTE | 2024-04-29 10:47 | PT.ODAYNRPT ---
PT Outpatient Daily Note OP Daily Note Outpatient Physical Therapy Treatment Date: 04/29/24 Visit Reasons: Post op knee Subjective: Pt reports knee swelling has gone down and continues to perform HEP. Objective: Please see flow sheet for ther ex list. Assessment: Pt ROM slowly progressing, continues with high focus on restoring ROM. Plan: Continue with POC. Length of Time (minutes) of Treatment: 30 Minutes Procedure Charges Therapeutic Exercise 30 minutes: Yes
--- NOTE | 2024-05-06 17:58 | PT.ODS1RPT ---
PT OP Progress/Discharge Note Date of Service: 05/06/24 Progress Note/DC Note Progress Note/Discharge Note: DC Note Patient Information Visit Reasons: Post op knee Service Continue Service or Discharge: Discharge Discharge Date: 05/06/24 Status Subjective: Pain with bending the knee. She is ambulating without assistive device. Doing HEP without much success with bending the knee. Objective: L knee AROM: Extension: full Flexion: 85 deg SLR: full Strength: Quads: 4-/5 HS: 4/5 Gait: unsymmetrical with decresaed WB on L knee. Assessment: Pt has attended / sessions with overall good progress with knee extension ROM but flexion is limited to about 90 deg PROM. Pain and adhesions limit ROM. Progress with flexion ROM goals has plateaued even after the STERLING. Plan: D/C with HEP. Procedure Charges Therapeutic Exercise 30 minutes: Yes
== END 2024-05-25 23:59 | disposition home or self-care (01) ==
LOC: CPTX 15:30
PROVIDERS: PCP Orthopaedic Surgery Adult Reconstructive Orthopaedic Surgery; Referring Provider Orthopaedic Surgery Adult Reconstructive Orthopaedic Surgery; Visit Provider Orthopaedic Surgery Adult Reconstructive Orthopaedic Surgery
DX: M25.562 Pain in left knee (principal); Z96.652 Presence of left artificial knee joint; M17.12 Unilateral primary osteoarthritis, left knee
CPT/HCPCS: 97110

== ENCOUNTER 2024-05-07 14:19 | Outpatient (AMB) | payer MEDICAID, SELFPAY ==
--- NOTE | 2024-05-07 14:28 | ORTHONT_ITS ---
Vital signs 05/07/24 14:29 Height 1.55 m Height Method Stated Weight 68.946 kg Weight Measurement Method Standing Scale BMI 28.7 BP 130/65 Blood Pressure Source Automatic Cuff Blood Pressure Location Left Upper Arm Position Sitting Respiration 18 Pulse 84 Pulse Source Monitor Temp 98.2 F Temp Source Temporal Artery Scan Pulse Oximetry (%) 98 Oxygen Delivery Method Room Air Med/Allergies Allergies & Medications Allergies No Known Allergies Allergy (Verified 05/07/24 14:32) Medication Reconciliation No Known Home Medications 03/27/24 [History Confirmed 05/07/24] acetaminophen 500 mg tablet (Acetaminophen Extra Strength) 1,000 mg (2 x 500 mg) PO Q6H PRN pain #90 tabs 03/30/24 [Rx Confirmed 05/07/24] oxycodone 5 mg tablet 5 mg PO Q6H PRN pain #14 tabs 03/30/24 [Rx Confirmed 05/07] Exam Exam Patient is in no acute distress and is cooperative with the examination today. Patient has a normal mood and affect. Breathing is nonlabored. In no respiratory distress. Bilateral extremities were evaluated and demonstrates sensation intact to light touch. Palpable pedal pulses are present. No significant edema is present. Left knee incision is clean dry and intact. Range of motion is 0 to 90 degrees Left knee x-rays demonstrate a total knee replacement in good alignment position Assessment and Plan Problem List (1) History of total left knee replacement: Status: Acute Plan: Patient is a 64-year-old female with a left knee pain and arthrofibrosis. We discussed that we want her to work aggressively with physical therapy to improve her range of motion. We also discussed that if she is unhappy, we could try a open lysis of adhesions with Downsizing of the poly. She reports that she is still doing well and does not want to do this at this time. We recommend continued physical therapy. We will see her as approximately 6 weeks (2) Arthrofibrosis of knee joint: Status: Acute Office Procedures GNS Level of Care Nursing/Assessment Patient Status: Established Patient Nursing Assessment/Reassesment: Medication Reconciliation, Update PMH in EMR and Vital Signs Coordination of Care: Complex Care and Chronic Disease 1-5, Education Complex Pt /Fam, Consent,records obtained, informed consent, Results/Orders obtained and Staff clarify orders Special Needs: Language special needs Established Patient Charge Established Patient Point Assignment: 95 Established Patient Point Charge: EP Level 3 (80-115) MA Intake Visit Data Collection New Patient or Established: Established Patient (seen at [facility] within 3 years) Reason for Visit:: 4 WEEK F/U MANIPULATION Seen by Clinical Staff ONLY (RN/MA): No 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 Department Required: Yes PCP or OBGYN visit in last 3 months: Yes Hx Now: No Do You Feel Safe at Home: Yes Authorities Contacted: N/A Questionairres Past Medical History Past Medical History Have you ever been diagnosed with any of the following: Neurological Problems Seizures: No Migraine: Yes Cardiology Problems Congestive Heart Failure: No Respiratory Problems Chronic Obstructive Pulmonary Disease (COPD): No Smoking: No Smoking Exposure: No Stomache/Intestinal Problems Hepatitis: No Genital/Urinary Problems Renal Disease: No Reproductive Problems Previous Pregnancies: Yes Musculoskeletal Problems Arthritis: Yes Endocrine Problems Diabetes Mellitus Type 1: No Diabetes Mellitus Type 2: No Other Problems Hospitalization: No Shingles: No Blood Transfusions: No Blood Transfusion Reaction: No Anesthesia Reactions: No Chicken Pox: Yes Measles: Yes Cancer: No Surgical History Total Knee Replacement: Yes Subjective Visit Visit for: follow up visit and knee (LEFT MANIPULATION ) Immunization / Flu Flu Vaccine in the Last 12 Months: No Flu Vaccine Exclusion Criteria: No Exclusion Criteria History of Present Illness Chief complaint: left knee stiffness Patient is a 64-year-old female with arthrofibrosis Who underwent manipulation under anesthesia 2 months ago. She can only flex to 85 degrees. She reports the knee on she does not bother her or is limiting her. She would like more physical therapy. Pain Pain level (0-10): 0 Pain duration: ALL DAY Pain location: inside (medial) and outside (lateral) Pain quality: sharp Pain timing: increases with activity Associated signs & symptoms: stiffness Ambulatory data Ambulatory device: none Treatments Improvement with previous injections: No Improvement with PT: No Improvement with NSAIDS: no Review of Systems Review of Systems: All systems negative unless otherwise noted in HPI.
[2024-05-07 14:29] VITALS: BP 130/65; PULSE 84; RESP 18; TEMP 36.8; O2SAT 98; BMI 28.7
== END 2024-05-07 14:40 | disposition home or self-care (01) ==
LOC: HODSRG 14:19
PROVIDERS: Supervising Provider Orthopaedic Surgery Adult Reconstructive Orthopaedic Surgery; Visit Provider Orthopaedic Surgery Adult Reconstructive Orthopaedic Surgery
DX: M24.662 Ankylosis, left knee (principal); Z96.652 Presence of left artificial knee joint
CPT/HCPCS: 99213; G0463

== ENCOUNTER 2024-06-17 15:30 | Outpatient (RCR) | payer MEDICAID, SELFPAY ==
--- NOTE | 2024-05-26 10:13 | PTNOTE_ITS ---
PT OP Initial Eval Patient Information Outpatient Physical Therapy Treatment Date: 05/26/24 Visit Reasons: Post op left knee Medical Diagnosis: M24.669 Treatment Dx #1: Decreased ROM L knee Treatment Dx #2: L knee pain Start of Care: 05/26/24 Date of Onset: 12/25/23 Smoking Status Smoking Status: Never smoker Initial Assessment Subjective: Pt is 64 yr old maltese speaking female s/p L TKA presents ambulating with slightly flexed knee and pain. Pt reports pain with bending the knee and walking. She is doing recumbent bike at home and HEP. PMH: none reported Pt goal: to ambulate and bend the knee back without pain Objective: L knee AROM: ? Flexion: 72 deg ? Extension: -6 deg ? SLR: ? 45 deg ? Strength: ? Quads and hamstrings 4/5 ? Antalgic gait pattern with decreased WB tolerance on L LE Assessment: Pt presentation consistent with post op L TKA with decreased ROM, strength ? and WB tolerance. Pt lacks knee extension and flexion ROM is very limited by ? myofascial limitations and pain.? Pt may benefit from skilled therapy to to meet goals and has fair rehab potential.? PT recommends static progressive ROM device such as a Dynasplint to improve knee flexion. 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 Independent with HEP ? 2. Improved knee extension to full and flexion ROM to 105 deg ? 3. Improved quad and hamstring strength to 4+/5 ? 4. Improved ambulatory tolerance to community distances with symmetrical ? gait pattern without antalgia Treatment Plan 1. Manual therapy ? 2. Therex ? 3. Modalities as indicated, moist heat, ice, TENS Frequency and Duration: 1-2x a week for 18 visits Certification Dates: 05/26/24 to 09/23/24 Procedure Charges OP PT Eval Mod Complex 30 minutes: Yes
--- NOTE | 2024-06-09 15:15 | PT.ODAYNRPT ---
PT Outpatient Daily Note OP Daily Note Outpatient Physical Therapy Treatment Date: 06/09/24 Visit Reasons: Post op left knee Subjective: Pt reports L knee continues to feels stiff, pt said she is compliant with HEP does not feel like ROM is improving. Objective: Please see flow sheet for ther ex list. Assessment: Performed PROM into knee flexion to pt tolerable range. Plan: Continue with poC, assess response to treatment. Length of Time (minutes) of Treatment: 30 Minutes Procedure Charges Therapeutic Exercise 30 minutes: Yes
--- NOTE | 2024-06-17 16:25 | PT.ODAYNRPT ---
PT Outpatient Daily Note OP Daily Note Outpatient Physical Therapy Treatment Date: 06/17/24 Visit Reasons: Post op left knee Subjective: Pt reports L knee continues to be stiff and swollen. As per pt she has been doing her HEP Objective: Please see flow sheet for ther ex lsit. Assessment: Continued focus on restoring L knee ROM. Plan: Continue with poC. Length of Time (minutes) of Treatment: 30 Minutes Procedure Charges Therapeutic Exercise 30 minutes: Yes
== END 2024-06-24 23:59 | disposition home or self-care (01) ==
LOC: CPTX 15:30
PROVIDERS: PCP Orthopaedic Surgery Adult Reconstructive Orthopaedic Surgery; Referring Provider Orthopaedic Surgery Adult Reconstructive Orthopaedic Surgery; Visit Provider Orthopaedic Surgery Adult Reconstructive Orthopaedic Surgery
DX: M25.562 Pain in left knee (principal); Z96.652 Presence of left artificial knee joint; M24.662 Ankylosis, left knee
CPT/HCPCS: 97110; 97162

== ENCOUNTER 2024-07-07 15:18 | Outpatient (AMB) | payer MEDICAID, SELFPAY ==
--- NOTE | 2024-07-07 15:33 | ORTHONT_ITS ---
Vital signs 07/07/24 15:34 Height 1.55 m Height Method Stated Weight 69.541 kg Weight Measurement Method Standing Scale BMI 28.9 BP 101/63 Blood Pressure Source Automatic Cuff Blood Pressure Location Right Upper Arm Position Sitting Respiration 17 Pulse 65 Pulse Source Monitor Temp 98.4 F Temp Source Temporal Artery Scan Pulse Oximetry (%) 96 Oxygen Delivery Method Room Air Med/Allergies Allergies & Medications Allergies No Known Allergies Allergy (Verified 07/07/24 15:34) Medication Reconciliation No Known Home Medications 03/27/24 [History Confirmed 07/07/24] acetaminophen 500 mg tablet (Acetaminophen Extra Strength) 1,000 mg (2 x 500 mg) PO Q6H PRN pain #90 tabs 03/30/24 [Rx Confirmed 07/07/24] oxycodone 5 mg tablet 5 mg PO Q6H PRN pain #14 tabs 03/30/24 [Rx Confirmed 06/25 05/19] Exam Exam Patient is in no acute distress and is cooperative with the examination today. Patient has a normal mood and affect. Breathing is nonlabored. In no respiratory distress. Bilateral extremities were evaluated and demonstrates sensation intact to light touch. Palpable pedal pulses are present. No significant edema is present. Left knee incision is clean dry and intact. Range of motion is 0 to 85 degrees Left knee x-rays demonstrate a total knee replacement in good alignment position Assessment and Plan Problem List (1) History of total left knee replacement: Status: Acute Plan: Patient is a 64-year-old female with a left knee pain and arthrofibrosis. We discussed that we want her to work aggressively with physical therapy to improve her range of motion. We also discussed that if she is unhappy, we could try a open lysis of adhesions with Downsizing of the poly. She reports that she is still doing well and does not want to do this at this time. We recommend continued physical therapy. We discussed open lysis of adhesions and downsizing the poly. She reports that she is okay right now and does not want to do it. She wants to continue therapy at this time. (2) Arthrofibrosis of knee joint: Status: Acute Office Procedures GNS Level of Care Nursing/Assessment Patient Status: Established Patient Nursing Assessment/Reassesment: Medication Reconciliation, Update PMH in EMR and Vital Signs Coordination of Care: Complex Care and Chronic Disease 1-5, Consent,records obtained, informed consent, Education Simp Pt/Fam, Results/Orders obtained and Staff clarify orders Special Needs: Language special needs ([place] ) Established Patient Charge Established Patient Point Assignment: 90 Established Patient Point Charge: EP Level 3 (80-115) MA Intake Visit Data Collection New Patient or Established: Established Patient (seen at [facility] within 3 years) Reason for Visit:: 2 MNTH FU LT KNEE Seen by Clinical Staff ONLY (RN/MA): No Nuclear Medicine Officer Required: Yes PCP or OBGYN visit in last 3 months: Yes Hx Now: No Do You Feel Safe at Home: Yes Authorities Contacted: N/A Questionairres Past Medical History Past Medical History Have you ever been diagnosed with any of the following: Neurological Problems Seizures: No Migraine: Yes Cardiology Problems Congestive Heart Failure: No Respiratory Problems Chronic Obstructive Pulmonary Disease (COPD): No Smoking: No Smoking Exposure: No Stomache/Intestinal Problems Hepatitis: No Genital/Urinary Problems Renal Disease: No Reproductive Problems Previous Pregnancies: Yes Musculoskeletal Problems Arthritis: Yes Endocrine Problems Diabetes Mellitus Type 1: No Diabetes Mellitus Type 2: No Other Problems Hospitalization: No Shingles: No Blood Transfusions: No Blood Transfusion Reaction: No Anesthesia Reactions: No Chicken Pox: Yes Measles: Yes Cancer: No Surgical History Total Knee Replacement: Yes Subjective Visit Visit for: follow up visit and knee (LT KNEE ) Immunization / Flu Flu Vaccine in the Last 12 Months: Yes Flu Vaccine Exclusion Criteria: Already Received History of Present Illness Chief complaint: left knee stiffness Patient is a 64-year-old female with arthrofibrosis Who underwent manipulation under anesthesia 2 months ago. She can only flex to 85 degrees. She reports the knee on she does not bother her or is limiting her. She would like more physical therapy. Personal History Red flag PMH: none Pain Pain level (0-10): 7 Pain duration: 11/2023 Pain location: anterior Pain quality: sharp and shocking Pain timing: night Associated signs & symptoms: numbness and stiffness Ambulatory data Ambulatory device: none Walking distance (minutes): 1 Treatments Number of previous injections: 0 Improvement with previous injections: No Number of Physical Therapy sessions: 0 Improvement with PT: No Improvement with NSAIDS: n/a Review of Systems Review of Systems: All systems negative unless otherwise noted in HPI.
[2024-07-07 15:34] VITALS: BP 101/63; PULSE 65; RESP 17; TEMP 36.9; O2SAT 96; BMI 28.9
== END 2024-07-07 15:47 | disposition home or self-care (01) ==
LOC: HODSRG 15:18
PROVIDERS: Supervising Provider Orthopaedic Surgery Adult Reconstructive Orthopaedic Surgery; Visit Provider Orthopaedic Surgery Adult Reconstructive Orthopaedic Surgery
DX: M24.662 Ankylosis, left knee (principal); Z96.652 Presence of left artificial knee joint
CPT/HCPCS: 99213; G0463

== ENCOUNTER 2024-07-13 10:56 | Emergency (ER) | payer MEDICAID, SELFPAY ==
[2024-07-13 11:20] VITALS: BP 121/77; PULSE 60; RESP 16; TEMP 36.6; O2SAT 96; BMI 29.7
--- NOTE | 2024-07-13 11:31 | EKG_ITS ---
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: : 1960 Requested By: Billy Elizalde Order Number: [id number] Reading MD: Billy Elizalde Measurements Intervals Arnett Rate: 59 P: 36 CA: 186 QRS: -16 QRSD: 88 T: -6 QT: 402 QTc: 400 Interpretive Statements SINUS BRADYCARDIA LOW QRS VOLTAGE IN PRECORDIAL LEADS [QRS DEFLECTION < 1.0 mV IN CHEST LEADS] MODERATE VOLTAGE CRITERIA FOR LVH, CONSIDER NORMAL VARIANT [MEETS CRITERIA IN ONE OF: R(aVL), S(V1), R(V5), R(V5/V6)+S(V1)] POSSIBLE ANTERIOR MYOCARDIAL INFARCTION , PROBABLY OLD [30 ms Q WAVE IN V3/V4, OR R < 0.2 mV IN V4] Compared to ECG 12/24/2023 09:49:25 Myocardial infarct finding now present /store/S0/[id number]/ecg/[id number].pdf
--- NOTE | 2024-07-13 11:32 | PD.EDRME ---
Rapid Medical Screening Exam [facility] Arrival date/time: 07/13/24 10:56 64-year-old female with no known medical history presents to the emergency room with a chief complaint of dizziness and lightheadedness that began this morning. Patient states her dizziness is worse with sudden positional changes. Patient denies any head injury or headache. I have greeted and performed a focused initial assessment of this patient. A comprehensive ED assessment and evaluation of the patient, analysis of all test results, and completion of the medical decision making process will be conducted by additional ED providers. Chief Complaint: Dizziness Vital signs: Vital Signs Temperature 97.9 F 07/13/24 11:20 Pulse Rate 60 07/13/24 11:20 Respiratory Rate 16 07/13/24 11:20 Blood Pressure 121/77 07/13/24 11:20 Pulse Oximetry (%) 96 07/13/24 11:20 Oxygen Delivery Method Room Air 07/13/24 11:20 Vital signs reviewed by provider: Yes
[2024-07-13] MEDS: MECLIZINE HCL 25 MG TABLET 50 MG PO (12:07)
[2024-07-13 12:30] LABS: Alanine Aminotransferase 17 U/L (10-49); Albumin, Serum 4.6 gm/dL (3.4-4.8); Albumin/Globulin Ratio 1.6 (1.2-2.2); Alkaline Phosphatase 159 U/L (46-116); Anion Gap 8 (7-16); Aspartate Amino Transferase 20 U/L (0-34); BUN/Creatinine Ratio 17 Ratio (12-20); Basophils # (Auto) 0.1 Thou/mm3 (0.0-0.2); Basophils % (Auto) 1 % (0-2.5); Bilirubin,Total 0.8 mg/dL (0.3-1.2); Blood Urea Nitrogen 12 mg/dL (9-23); Calcium 9.6 mg/dL (8.3-10.6); Calcium (Corrected) 9.6 mg/dL (8.5-10.1); Carbon Dioxide 26.1 mMol/L (20.0-31.0); Chloride 102 mMol/L (98-107); Creatinine (Component) 0.7 mg/dL (0.6-1.3); Eosinophils # (Auto) 0.1 Thou/mm3 (0.0-0.5); Eosinophils % (Auto) 2 % (0-10); Estimated Creatinine Clearance 72.3 mL/min (>60); Globulin 2.9 gm/dL (2.3-3.5); Glucose 92 mg/dL (74-106); Hematocrit 38.7 % (36.0-46.0); Hemoglobin 13.1 g/dL (12.0-16.0); Immature Granulocytes % (Auto) 0 % (0-0); Immature Granulocytes Auto 0.03 Thou/mm3 (0.00-0.00); Lymphocytes # (Auto) 2.9 Thou/mm3 (1.0-4.8); Lymphocytes % (Auto) 38 % (10-50); Mean Corpuscular HGB Conc 33.9 g/dl (31.0-37.0); Mean Corpuscular Hemoglobin 28.6 pg (25.0-35.0); Mean Corpuscular Volume 85 fL (80-100); Monocytes # (Auto) 0.6 Thou/mm3 (0.0-0.8); Monocytes % (Auto) 9 % (0-12); Neutrophils # (Auto) 3.8 Thou/mm3 (1.8-7.7); Neutrophils % (Auto) 50 % (37-80); Nucleated Red Blood Cell % 0 /100 WBC (0); Osmolality,Calculated 271 (275-295); Platelet Count 313 Thou/mm3 (140-440); Potassium 3.8 mMol/L (3.4-5.1); RDW Standard Deviation 42.1 fL (36.4-46.3); Red Blood Count 4.58 Miln/mm3 (4.00-5.20); Sodium 136 mMol/L (136-145); Total Protein 7.5 gm/dL (5.7-8.2); Troponin I < 0.002 ng/mL (0.0-0.045); White Blood Count 7.5 Thou/mm3 (3.6-11.0); eGFR > 60 See Note
[2024-07-13 12:52] LABS: Collection Type, Urine Clean Catch
[2024-07-13 13:13] LABS: Bilirubin,Urine Negative (Negative); Blood,Urine Negative (Negative); Clarity,Urine Clear (Clear/Hazy); Color,Urine Lt-Yellow (Lt Yel-Yel); Glucose, Urine Negative (Negative); Ketones,Urine Negative (Negative); Leukocyte Esterase,Urine Negative (Negative); Nitrite,Urine Negative (Negative); PH,Urine 6.5 (5.0-7.0); Protein,Urine Negative (Neg - Trace); RBC,Urine 1 /hpf (0-3); Specific Gravity,Urine 1.023 (1.001-1.035); Squamous Epithelial Cell,Urine < 1 /hpf (0-5); Urobilinogen,Urine Negative mg/dL (0.0-1.0); WBC,Urine 1 /hpf (0-5)
[2024-07-13 13:34] LABS: B-Type Natriuretic Peptide 26 pg/mL (0-100)
[2024-07-13 16:05] VITALS: BP 123/80; PULSE 59; RESP 18; TEMP 36.7; O2SAT 97
--- NOTE | 2024-07-13 16:23 | PD.EDDIZZY ---
ED Dizzyness RME/HPI General Chief Complaint: Dizziness Stated Complaint: DIZZY WITH N/V SINCE 4AM Arrival date/time: 07/13/24 10:56 RME / HPI RME / HPI Narrative: 07/13/24 10:56 64-year-old female with no known medical history presents to the emergency room with a chief complaint of dizziness and lightheadedness that began this morning. Patient states her dizziness is worse with sudden positional changes. Patient denies any head injury or headache. I have greeted and performed a focused initial assessment of this patient. A comprehensive ED assessment and evaluation of the patient, analysis of all test results, and completion of the medical decision making process will be conducted by additional ED providers. DR. RAWLS MAIN ED EVALUATION: 64 year old female presents to the Emergency Department accompanied by her with complaint of dizziness, room spinning dizziness, since 4 AM this morning. She states that this morning at 4 AM she got up to urinate, which is normal for her, and felt dizzy; she tried to sit back down to alleviate her dizziness and lay down but it would not help. Last night, she went to sleep at 930 PM and she was fine then. Associated symptoms include nausea but no vomiting. She closes her eyes and states that helps her nausea. No runny nose/ congestion, cough, earache, ear fullness, fevers or chills. PMHx: Denies any PMHx, she did take cholesterol medications at one point but does not now. Right knee surgery. No known allergies. Social Hx: No tobacco, alcohol, or substance use. Related Data Previous Rx's ?Medication ?Instructions ?Recorded acetaminophen 500 mg tablet 1,000 mg (2 x 500 mg) PO Q6H PRN 03/30/24 (Acetaminophen Extra Strength) pain #90 tabs oxycodone 5 mg tablet 5 mg PO Q6H PRN pain #14 tabs 03/30/24 meclizine 50 mg tablet 50 mg PO BID PRN dizziness #10 tabs 07/13/24 ondansetron 4 mg disintegrating 4 mg PO Q8H PRN nausea and 07/13/24 tablet vomiting #7 tabs Allergies Allergy/AdvReac Type Severity Reaction Status Date / Time No Known Allergies Allergy Verified 07/07/24 15:34 Review of Systems Review of Systems Systems Reviewed: All systems reviewed, normal except as documented Narrative Review of Systems: GEN: No fever, no chills, no weight loss EYES: No discharge, no visual changes, no pain HEENT: No ear pain, no congestion, no sore throat PULM: No shortness of breath, no cough, no congestion CV: No chest pain, no dyspnea on exertion, no palpitations GI: + nausea, no vomiting, no diarrhea, no pain, no constipation : No frequency, no urgency and no dysuria MUSC/SKEL: No joint pain, no back pain SKIN: No rash PSYCH: No hallucinations, no depression HEME/LYMPH: No easy bleeding or bruising tendencies NEURO: No weakness, no headache, + dizziness/ vertigo (see HPI) Past Medical History Past Medical History NEUROLOGIC: Positive Neurological Disorders and Migraine REPRODUCTIVE: Positive Previous Pregnancies MUSCULOSKELETAL: Positive Musculoskeletal Disorders and Arthritis OTHER HISTORY: Positive Chicken Pox and Measles Family History FAMILY HISTORY: Positive Family Cancer and Family Surgery Surgical History SURGICAL: Positive Open Reduction Internal Fixation (Left elbow has metal) Social History SMOKING STATUS: Never smoker SUBSTANCE USE: does not use ALCOHOL: Never ED Exam Narrative Physical exam: GENERAL APPEARANCE: AxOx4, generally well-appearing, no acute distress. HEENT: NC, AT. Reproducible horizontal nystagmus when she looks to the left; dizziness when she looks down but no nystagmus. Clear conjunctiva, oropharynx clear. NECK: Supple without lymphadenopathy. No stiffness or restricted ROM. HEART: Normal rate and regular rhythm, normal S1/S1, no m/r/g LUNGS: CTAB, moving air well. No crackles or wheezes are heard. ABDOMEN: Soft, nontender, nondistended with good bowel sounds heard. BACK: No midline C/T/L spine pain or deformity, No CVAT, no obvious deformity. EXTREMITIES: Without cyanosis, clubbing or edema. MUSCULOSKELETAL: FROM of all major joints, no chest tenderness NEUROLOGICAL: Grossly nonfocal. Alert and oriented, moving all 4 extremities. CN not formally tested but appear grossly intact. Negative Romberg's test. Skin: Warm and dry without any rash. Course Quality Measures none Orders Category Date Time Status EKG (ED ONLY) *Do not use* NOW Care 07/13/24 11:31 Completed EKG (ED Only) Stat Exams 07/13/24 11:31 Draft BNP [B-Type Natriuretic Peptide] Stat Lab 07/13/24 11:46 Completed CBC Stat Lab 07/13/24 11:46 Completed Comprehensive Metabolic Panel Stat Lab 07/13/24 11:46 Completed Troponin I Stat Lab 07/13/24 11:46 Completed Urinalysis Stat Lab 07/13/24 12:30 Completed Urine Culture Stat Lab 07/13/24 12:30 Received Meclizine HCl [Antivert] Med 07/13/24 11:31 Discontinued 50 mg PO X1 ONE Vital Signs Vital signs: Vital Signs Temperature 97.9 F 07/13/24 11:20 Pulse Rate 60 07/13/24 11:20 Respiratory Rate 16 07/13/24 11:20 Blood Pressure 121/77 07/13/24 11:20 Pulse Oximetry (%) 96 07/13/24 11:20 Oxygen Delivery Method Room Air 07/13/24 11:20 Procedures -ED EKG Interpretation #1: Date of EK07/13/24 Time of EK:33 Rate: 59 Interpretation: Interpreted by me Additional EKG comment: borderline sinus bradycardia, rate 59, nonspecific T wave changes Dizziness MDM Narrative MDM Narrative:: IArielle am scribing for and in the presence of Dr. Rawls. Patient data External records reviewed:: [facility] previous records (Reviewed Orthopedics note by Dr. Fletcher, dated 07/07/24.) Clinical information provided by:: patient and spouse Social determinants that could affect healthcare access:: none Patient has the following chronic illnesses:: Denies any PMHx, she did take cholesterol medications at one point but does not now. Right knee surgery. No known allergies. How is presenting disease/condition affected by chronic disease/condition?: uneffected by Evaluation data The following diagnostics were reviewed and interpreted by me:: lab results and EKG tracing(s) Lab and/or radiology exams considered but not ordered:: none Interpretation Summary: Vertigo. No acute findings. Medications / Prescriptions Medications or Prescriptions considered but not ordered:: none Medication administrations:: Medication Administration History Discontinued Medications Meclizine HCl (Meclizine Hcl 25 Mg Tablet) 50 mg PO X1 ONE Stop: 07/13/24 11:32 Last Admin: 07/13/24 12:07 Dose: 50 mg Documented By: GM see above Consultations Consultation(s) initiated? (list below): No Diagnosis Dizziness Differential Diagnosis: benign paroxysmal positional vertigo, orthostatic hypotension and transient cerebral ischemia Most likely diagnosis given after review of the tests above:: Vertigo Admission Indicated Admission indicated?: not indicated Admission Request Was there a request for admission?: No Disposition Plan Disposition Plan: Discharge Discharge Attestation Discharge Attestation: The patient and all family members were given an opportunity to ask questions and understood the discharge instructions. Discharge instructions specifically effects, indications for sooner follow up or return to the emergency department, and the expected course of current diagnosis. Patient condition: Stable Discharge Plan Plan Patient Disposition: HOME (Self Care) Patient condition on transfer: Stable Prescriptions/Referrals Prescriptions/Med Rec: New meclizine 50 mg tablet 50 mg PO BID PRN (Reason: dizziness) Qty: 10 0RF ondansetron 4 mg tablet,disintegrating 4 mg PO Q8H PRN (Reason: nausea and vomiting) Qty: 7 0RF No Action acetaminophen [Acetaminophen Extra Strength] 500 mg tablet 1,000 mg PO Q6H MDD 1000mg PRN (Reason: pain) Qty: 90 0RF oxycodone 5 mg tablet 5 mg PO Q6H MDD 20 PRN (Reason: pain) Qty: 14 0RF Rx Instructions: z96.65 Referrals: Narendra Rosa PA-C [Primary Care Provider] - In 1 week Problem List Clinical Impression: Vertigo Patient/Caregiver Discharge Instructions Education Materials: Vertigo Medicine Tx, ED Dizziness, Uncertain Cause Additional Instructions: Acuda a azam consulta de seguimiento con barrow m?dico de cabecera en 3 a 5 d?as para azam nueva evaluaci?n. Puede acudir a urgencias antes si los s?ntomas empeoran o si nota alg?n problema nuevo o preocupante. Print Language: Cuban Stand Alone Forms: Radha Award Info., Patient Portal Info Letter
== END 2024-07-13 16:36 | disposition home or self-care (01) ==
PROVIDERS: Nurse Practitioner Family; Emergency Provider Emergency Medicine; PCP Family Medicine
DX: R42 Dizziness and giddiness (principal); R00.1 Bradycardia, unspecified
CPT/HCPCS: 36415; 80053; 81001; 83880; 84484; 85025; 87086; 93005; 99283; A9270

== ENCOUNTER 2024-07-24 15:30 | Outpatient (RCR) | payer MEDICAID, SELFPAY ==
--- NOTE | 2024-06-25 18:04 | PT.ODAYNRPT ---
PT Outpatient Daily Note OP Daily Note Outpatient Physical Therapy Treatment Date: 06/25/24 Visit Reasons: Post op knee Subjective: Continued stiffness with bending Objective: See F/S for therex Assessment: Continued limited L knee stiffness into flexion Plan: Continue with POC Length of Time (minutes) of Treatment: 30 Minutes Procedure Charges Therapeutic Exercise 30 minutes: Yes
--- NOTE | 2024-06-29 15:38 | PT.ODAYNRPT ---
PT Outpatient Daily Note OP Daily Note Outpatient Physical Therapy Treatment Date: 06/29/24 Visit Reasons: Post op knee Subjective: Pt reports knee continues to be stiff, she is very consistent with her HEP but still feels no progress with knee mobility. Pt has follow up with surgeon on July 07. Objective: Please see flow sheet for ther ex list. Assessment: Focus on restoring ROM and strength. Plan: Assess for note recommending dynasplint. Length of Time (minutes) of Treatment: 30 Minutes Procedure Charges Therapeutic Exercise 30 minutes: Yes
--- NOTE | 2024-07-01 15:54 | PT.ODAYNRPT ---
PT Outpatient Daily Note OP Daily Note Outpatient Physical Therapy Treatment Date: 07/01/24 Visit Reasons: Post op knee Subjective: Continued stiffness with bending Objective: See F/S for therex Assessment: Continued limited L knee stiffness into flexion consistent with scar tissue adhesions. Plan: Continue with POC Length of Time (minutes) of Treatment: 30 Minutes Procedure Charges Therapeutic Exercise 30 minutes: Yes
--- NOTE | 2024-07-07 15:43 | PT.ODAYNRPT ---
PT Outpatient Daily Note OP Daily Note Outpatient Physical Therapy Treatment Date: 07/07/24 Visit Reasons: Post op knee Subjective: Pt shared that she is frustrated, feels like no matter how much she does her HEP, stretches and PT knee continues to be stiff. Pt has a follow up with Dr. Fletcher today. Objective: Please see flow sheet for ther ex list. Assessment: High focus on restoring ROM of R knee, performing PROM, static and dynamic stretches. Plan: Continue with poC. Length of Time (minutes) of Treatment: 30 Minutes Procedure Charges Therapeutic Exercise 30 minutes: Yes
--- NOTE | 2024-07-09 16:04 | PT.ODAYNRPT ---
PT Outpatient Daily Note OP Daily Note Outpatient Physical Therapy Treatment Date: 07/09/24 Visit Reasons: Post op knee Subjective: Pt had follow up with surgeon who suggested possible revision in the future. Pt recommended to continue with PT. Objective: Please see flow sheet for ther ex list. Assessment: Continued with focus on intervention to improve ROM of L knee. Plan: Continue with pOC. Length of Time (minutes) of Treatment: 30 Minutes Procedure Charges Therapeutic Exercise 30 minutes: Yes
--- NOTE | 2024-07-24 15:55 | PT.ODAYNRPT ---
PT Outpatient Daily Note OP Daily Note Outpatient Physical Therapy Treatment Date: 07/24/24 Visit Reasons: Post op knee Subjective: Pt reports L knee is doing ok, still stiff ROM not where she would like. Objective: Please see flow sheet for ther ex list. Assessment: Continued focus on restoring ROM, despite slow progress pt motivated and compliant. Plan: Continue with poC. Length of Time (minutes) of Treatment: 30 Minutes Procedure Charges Therapeutic Exercise 30 minutes: Yes
== END 2024-07-25 23:59 | disposition home or self-care (01) ==
LOC: CPTX 15:30
PROVIDERS: PCP Orthopaedic Surgery Adult Reconstructive Orthopaedic Surgery; Referring Provider Orthopaedic Surgery Adult Reconstructive Orthopaedic Surgery; Visit Provider Orthopaedic Surgery Adult Reconstructive Orthopaedic Surgery
DX: M25.562 Pain in left knee (principal); M24.662 Ankylosis, left knee; Z96.652 Presence of left artificial knee joint
CPT/HCPCS: 97110

== ENCOUNTER → 2024-08-07 | Outpatient (CLI) | payer MEDICAID, SELFPAY ==
--- NOTE | 2024-08-07 09:00 | XR_ITS ---
Examination: Breast ultrasound, unilateral, right complete Date and time of exam: August 07, 2024 0901 hours INDICATIONS: Outside mammogram May 05, 2024 focal asymmetry 10 mm central right breast Technique: Real-time tinoco scale ultrasonographic imaging performed right breast including all 4 quadrants as well as nipple retroareolar and axillary region. Findings: 12:00 cyst 7 x 11 mm 3:00 cyst 7 x 2 mm 10:00 nodule circumscribed 5 x 3 mm IMPRESSION: BI-RADS Category 3: Probably benign findings Recommend 1 additional 6 month right breast sonogram follow-up to document stability of 10:00 nodule described above
--- NOTE | 2024-08-07 09:45 | XR_ITS ---
Examination: Diagnostic digital mammography, unilateral, right Computer aided detection 3-D breast Tomosynthesis, unilateral Date and time of exam: August 07, 2024 0912 hours INDICATIONS: Outside mammogram May 05, 2024 focal asymmetry 10 mm central right breast Technique: Nonmagnified MLO, CC views of the right breast have been obtained, reconstructed from 3-D Tomosynthesis images. R2 computer aided detection program utilized for evaluation of suspicious masses and/or abnormal calcifications. 3-D Tomosynthesis images obtained. Findings: Scattered areas of fibroglandular density Focal asymmetry remains, 10 mm, nipple level right breast on the spot compression view, likely upper right breast on the MLO view Impression: BI-RADS category 3: Probably benign findings One additional 6 month right mammogram follow-up is needed to document stability of focal asymmetry described above
== END | disposition home or self-care (01) ==
PROVIDERS: PCP Family Medicine; Referring Provider Family Medicine; Visit Provider Family Medicine
DX: R92.8 Other abnormal and inconclusive findings on diagnostic imaging of breast (principal); N63.11 Unspecified lump in the right breast, upper outer quadrant; N60.11 Diffuse cystic mastopathy of right breast; R92.321 Mammographic fibroglandular density, right breast; N64.89 Other specified disorders of breast
CPT/HCPCS: 76641; 77061; 77065; G0279

== ENCOUNTER 2024-08-17 15:00 | Outpatient (RCR) | payer MEDICAID, SELFPAY ==
--- NOTE | 2024-07-28 16:36 | PT.ODAYNRPT ---
PT Outpatient Daily Note OP Daily Note Outpatient Physical Therapy Treatment Date: 07/28/24 Visit Reasons: left knee surgery Subjective: Pt reports knee is doing ok, has good and bad days. Pt shared that she has days where she limps more than other days. Objective: Please see flow sheet for ther ex list. Assessment: Continued focus on restoring ROM and normalizing gait. Plan: Continue with pOC. Length of Time (minutes) of Treatment: 30 Minutes Procedure Charges Therapeutic Exercise 30 minutes: Yes
--- NOTE | 2024-08-04 15:44 | PT.ODAYNRPT ---
PT Outpatient Daily Note OP Daily Note Outpatient Physical Therapy Treatment Date: 08/04/24 Visit Reasons: left knee surgery Subjective: Pt reports knee has been feeling better lately but still not able to bend it as much as she would like. Objective: Please see flow sheet for ther ex list. Assessment: Performed PROM to L knee,minimal guarding pt able to reach ~90 deg of flexion. Plan: Continue with POC. Length of Time (minutes) of Treatment: 30 Minutes Procedure Charges Therapeutic Exercise 30 minutes: Yes
--- NOTE | 2024-08-17 18:33 | PT.ODS1RPT ---
PT OP Progress/Discharge Note Date of Service: 08/17/24 Progress Note/DC Note Progress Note/Discharge Note: DC Note Patient Information Visit Reasons: left knee surgery Service Continue Service or Discharge: Discharge Discharge Date: 08/17/24 Status Subjective: Pain with bending the knee. She is ambulating without assistive device. Doing HEP without much success with bending the knee. Objective: L knee AROM: PROM: Extension: full Flexion: 80 deg 90 deg with overpressure SLR: full Strength: Quads: 4-/5 HS: 4/5 Gait: unsymmetrical with decreased WB on L knee. Assessment: Pt has attended 11/06 sessions with slow progress with knee flexion that is limited to about 90 deg PROM. Pain and adhesions limit ROM. Progress with flexion ROM goals has plateaued even after the STERLING. Plan: D/C with HEP. Procedure Charges Therapeutic Exercise 30 minutes: Yes
== END 2024-08-24 23:59 | disposition home or self-care (01) ==
LOC: CPTX 15:00
PROVIDERS: PCP Orthopaedic Surgery Adult Reconstructive Orthopaedic Surgery; Referring Provider Orthopaedic Surgery Adult Reconstructive Orthopaedic Surgery; Visit Provider Orthopaedic Surgery Adult Reconstructive Orthopaedic Surgery
DX: M25.562 Pain in left knee (principal); Z96.652 Presence of left artificial knee joint; M24.662 Ankylosis, left knee
CPT/HCPCS: 97110